=== PATIENT | male | born 1975 | race Caucasian/White ===

== ENCOUNTER 2020-08-09 08:19 | Emergency (ER) | payer OTHER ==
[~2020-08-09 08:19] MED LIST: CLARITIN 10MG T10 MG PO; ESCITALOPRAM OX20 MG PO; HYDROXYZINE PAM25 MG PO; LIPITOR20 MG PO; LISINOPRIL-HCT1 EACH PO; MIRALAX17 GM PO; OMEPRAZOLE40 MG PO; PROVENTIL HFA6.7 GM INH
[2020-08-09 09:29] LABS: HEMOGLOBIN 16.6 gm/dl (14.0-17.5); RED BLOOD COUNT 5.22 M/UL (4.20-5.50); WHITE BLOOD COUNT 13.7 K/UL (4.5-11.0)
[2020-08-09 09:52] LABS: BUN/CREATININE RATIO 15 (0-10)
== END 2020-08-09 11:12 | disposition home or self-care (01) ==
LOC: ER1 08:19
PROVIDERS: Physician Assistant
DX: J06.9 Acute upper respiratory infection, unspecified (principal); I10 Essential (primary) hypertension; F17.200 Nicotine dependence, unspecified, uncomplicated; Z20.822 Contact with and (suspected) exposure to COVID-19
CPT/HCPCS: 71045; 80053; 82550; 82553; 83874; 84484; 85025; 93005; 99285; U0003

== ENCOUNTER → 2020-09-18 | Outpatient (CLI) | payer BC ==
[~2020-09-18] MED LIST changes: +BENTYL 20MG TAB20 MG PO; +LODINE CAP 300300 MG PO; +ZOFRAN ODT 4 MG4 MG PO
[2020-09-18 09:07] LABS: HEMOGLOBIN 16.2 gm/dl (14.0-17.5); RED BLOOD COUNT 5.04 M/UL (4.20-5.50); WHITE BLOOD COUNT 14.6 K/UL (4.5-11.0)
[2020-09-18 09:25] LABS: BUN/CREATININE RATIO 19 (0-10)
== END ==
LOC: LAB 08:43
PROVIDERS: Nurse Practitioner
DX: Z00.01 Encounter for general adult medical examination with abnormal findings (principal); I10 Essential (primary) hypertension; E55.9 Vitamin D deficiency, unspecified; M79.10 Myalgia, unspecified site; R12 Heartburn; R53.83 Other fatigue; R73.09 Other abnormal glucose; Z13.6 Encounter for screening for cardiovascular disorders; Z13.89 Encounter for screening for other disorder
CPT/HCPCS: 36415; 80053; 80061; 81001; 82607; 82746; 83036; 83735; 84443; 85025

== ENCOUNTER 2020-11-01 13:18 | Emergency (ER) | payer BC ==
[~2020-11-01 13:18] MED LIST changes: -BENTYL 20MG TAB20 MG PO; -LODINE CAP 300300 MG PO; -ZOFRAN ODT 4 MG4 MG PO
[2020-11-01 18:36] LABS: HEMOGLOBIN 15.4 gm/dl (14.0-17.5); RED BLOOD COUNT 4.82 M/UL (4.20-5.50); WHITE BLOOD COUNT 18.7 K/UL (4.5-11.0)
[2020-11-01 18:49] LABS: BUN/CREATININE RATIO 13 (0-10)
[2020-11-01] MEDS ORDERED: BENTYL 20MG TAB20 MG PO (20:27)
[2020-11-01] MEDS ORDERED: ZOFRAN ODT 4 MG4 MG PO (20:27)
[2020-11-01] MEDS ORDERED: LODINE CAP 300300 MG PO (20:27)
== END 2020-11-01 20:38 | disposition home or self-care (01) ==
LOC: ER1 13:18
PROVIDERS: Nurse Practitioner
DX: R10.31 Right lower quadrant pain (principal); R19.7 Diarrhea, unspecified; I10 Essential (primary) hypertension; F17.210 Nicotine dependence, cigarettes, uncomplicated; Z90.89 Acquired absence of other organs
CPT/HCPCS: 80053; 81001; 83605; 83690; 85025; 96374; 96375; 99284; J1885; J2405; Q9967

== ENCOUNTER → 2021-03-07 | Outpatient (CLI) | payer BC ==
[~2021-03-07] MED LIST changes: +BENTYL 20MG TAB20 MG PO; +LODINE CAP 300300 MG PO; +ZOFRAN ODT 4 MG4 MG PO
== END ==
LOC: RAD 10:55
DX: M54.5 Low back pain (principal); M25.552 Pain in left hip; M16.12 Unilateral primary osteoarthritis, left hip
CPT/HCPCS: 72110; 73502

== ENCOUNTER → 2021-06-03 | Outpatient (CLI) | payer BC | LOC: RAD 07:31 | DX: G89.29 Other chronic pain (principal); M25.552 Pain in left hip | CPT/HCPCS: J3301; Q9967 ==

== ENCOUNTER 2021-08-04 15:19 | Emergency (ER) | payer BC ==
[2021-08-04 17:13] LABS: HEMOGLOBIN 16.2 gm/dl (14.0-17.5); RED BLOOD COUNT 5.1 M/UL (4.20-5.50); WHITE BLOOD COUNT 9.9 K/UL (4.5-11.0)
[2021-08-04 17:48] LABS: BUN/CREATININE RATIO 14 (0-10)
[2021-08-04] MEDS ORDERED: DELSYM30 MG/5 ML PO (20:49)
[2021-08-04] MEDS ORDERED: FLONASE 0.05% N16 GM (20:49)
== END 2021-08-04 21:20 | disposition home or self-care (01) ==
LOC: ER1 15:19
PROVIDERS: Physician Assistant Medical
DX: U07.1 COVID-19 (principal); I10 Essential (primary) hypertension; F17.210 Nicotine dependence, cigarettes, uncomplicated; Z90.49 Acquired absence of other specified parts of digestive tract
CPT/HCPCS: 71045; 80053; 81001; 85025; 99283; J1100; U0002

== ENCOUNTER 2022-02-25 07:28 | Emergency (ER) | payer OTHER ==
[~2022-02-25 07:28] MED LIST changes: +DELSYM30 MG/5 ML PO; +FLONASE 0.05% N16 GM
[2022-02-25] MEDS ORDERED: AMOX TR-K CLV1 EAC4 PO (08:24)
== END 2022-02-25 08:30 | disposition home or self-care (01) ==
LOC: ER1 07:28
DX: K08.89 Other specified disorders of teeth and supporting structures (principal); I10 Essential (primary) hypertension; F17.200 Nicotine dependence, unspecified, uncomplicated
CPT/HCPCS: 99283